=== PATIENT | female | born 1945 | race Caucasian/White ===

== ENCOUNTER → 2017-08-12 | Day surgery (SDC) | payer OTHER ==
[~2017-08-12] VITALS: Ht 162.6 cm; Wt 71.7 kg
[~2017-08-12] MED LIST: ESCITALOPRAM OX20 MG PO; GABAPENTIN300 M2 PO; LISINOPRIL-HCT1 EAC1 PO; MYRBETRIQ50 M1 PO; OXYCODONE HCL10 M2 PO; POTASSIUM CHLO10 ME5 PO; PRAVACHOL40 M1 PO; TIZANIDINE HCL2 M2 PO
--- NOTE | 2017-08-12 15:59 | Operative Report ---
Operative/Inv Procedure Report Surgery Date: 08/12/17 Name of Procedure: Excision 6 cm superficial right thigh lipoma Pre-Operative Diagnosis: Lipoma Post-Operative Diagnosis: Same Estimated Blood Loss: scant Surgeon/Transfer Operator: Martin YOU,Braxton Owusu Anesthesia: laryngeal mask airway Specimens: Lipoma Operative/Procedure Note Note: After consent she is brought to the operative laid supine. Attempted sedation was performed by patient could not be kept from moving. LMA anesthesia was employed. Her right thigh was prepped and draped laterally. The skin over the mass was symmetrical cocktail local anesthesia. An incision was made sharply. The tumor was then circumvention dissected with blunt and cautery dissection. It was removed and passed off the field. Hemostasis was achieved with cautery. The incision was closed in 2 layers of 3-0 and 4-0 Vicryl sutures. Steri-Strips and sterile dressing applied. Sponge and needle counts are correct CC: Freddy YOU,Ming Cortes
== END ==
LOC: STS 01:56
DX: D17.23 Benign lipomatous neoplasm of skin and subcutaneous tissue of right leg (principal); I10 Essential (primary) hypertension; M54.5 Low back pain
CPT/HCPCS: J0131